=== PATIENT | male | born 1960 | race Caucasian/White ===

== ENCOUNTER → 2017-12-21 | Outpatient (CLI) | payer OTHER, BC ==
--- NOTE | 2017-12-21 11:59 | DIAGNOSTIC IMAGING REPORT ---
MRI THE RIGHT KNEE NO CONTRAST CLINICAL HISTORY: Right knee pain status post trauma COMPARISON STUDY: No previous studies for comparison. FINDINGS: There are no areas of marrow replacement to indicate a neoplastic process. The quadriceps and patellar tendons appear intact. Anterior posterior cruciate ligaments appear intact. The patellar retinacular structures appear intact. The medial and lateral collateral ligaments appear intact. There is a small joint effusion. There is mild suprapatellar soft tissue edema. No meniscal tears are visualized. There is a 15 x 1.5 x 8 mm cartilaginous defect involving the medial aspect of the medial femoral condyle. IMPRESSION: 1. Laminar cartilaginous defect involving the medial aspect the medial femoral condyle measuring 15 x 1.5 x 8 mm. 2. No evidence of cruciate or collateral ligament disruption 3. No meniscal tears identified Electronically signed by: Carlito Mcmullen M.D. 12/21/2017 11:58 AM Dictated Date/Time: 12/21/2017 11:46 AM
== END | disposition home or self-care (01) ==
LOC: C.MRI 10:35
PROVIDERS: ATTEND Nurse Practitioner Family
DX: S89.91XA Unspecified injury of right lower leg, initial encounter (principal); X58.XXXA Exposure to other specified factors, initial encounter; Y99.0 Civilian activity done for income or pay; R93.7 Abnormal findings on diagnostic imaging of other parts of musculoskeletal system